=== PATIENT | male | born 1970 | race Caucasian/White ===

== ENCOUNTER 2023-09-30 16:40 | Emergency (ER) | payer OTHER ==
[~2023-09-30] VITALS: Ht 177.8 cm; Wt 71.0 kg
[~2023-09-30 16:40] MED LIST: BACI3.5O2 EACHEYE
[2023-09-30 16:46] VITALS: BP 117/77; PULSE 94; RESP 14; TEMP 99.2; O2SAT 98
[2023-09-30] MEDS ORDERED: ACYC-128 PO (18:31)
[2023-09-30] MEDS ORDERED: PRED20TA PO (18:31)
[2023-09-30] MEDS ORDERED: SULF1TAB49 PO (19:16)
[2023-09-30] MEDS: sulfamethoxazole/trimethoprim DS (800/160mg) tablet PO ONE (19:21)
== END 2023-09-30 19:32 | disposition home or self-care (01) ==
LOC: ER 16:41
DX: L03.114 Cellulitis of left upper limb (principal); Z88.0 Allergy status to penicillin; Z88.8 Allergy status to other drugs, medicaments and biological substances
CPT/HCPCS: 99283